=== PATIENT | female | born 1990 | race Caucasian/White ===

== ENCOUNTER 2016-12-10 22:32 | Emergency (ER) | payer BC, MEDICAID ==
--- NOTE | 2016-12-11 04:06 | ER Physician Documentation ---
DATE OF SERVICE: 12/10/2016 EMERGENCY ROOM EVALUATION AND TREATMENT HISTORY AND PHYSICAL PATIENT'S IDENTIFICATION: A 25-year-old female patient came to the Emergency Room on 12/10/2016 at 11:10 when I saw her. The patient was seen on 12/10/2016. She was seen along with Kelsi, the triage nurse. She was there with me when I was examining and she witnessed that. No known allergies reported by the patient. BMI of the patient is 22.5 kg. Body surface area is 1.67 sq. m. The patient is full code. The patient's weight is 61.235 kg. This is a 25-year-old female patient who had her both breast implants done with silicone in [place] on 11/04/2016 after which she was given 2 weeks of Cipro antibiotic and the patient took those, finished those, and for past 3 days, the patient has been having pain and swelling and discomfort in the left breast more than the right breast. She did not know that her right breast is also infected. More will be dictated as I go along but actually both the breasts were found to be infected and there were pus sites and redness and erythema and cellulitis and severe infection of both breast sites is noted. Hence, the patient was seen in the ER. HISTORY OF PRESENT ILLNESS: The surgery was done for the first time for the patient for breast augmentation with silicone and her other family members were over there, so she went over there, spent some money to get this thing done. She talked to her doctor about 2 days ago but the doctor is in [place], so she came over here. I saw her, asked questions. She does not have any major fever. She does not take any medication. The medication list, I will be getting it pretty soon. If there is anything new that is added, I will let you know. She denies any other medical condition. Her friend noted that some discharge and redness and erythema are there. REVIEW OF SYSTEMS: EYES: No history of double vision, blurring, blindness. CENTRAL NERVOUS SYSTEM: No history of TIA, stroke, encephalitis, brain tumor, epilepsy, seizure disorder. ENDOCRINE: No diabetes mellitus. No hypo- or hyperthyroidism. BONES AND JOINTS: No apparent complaints. BREASTS: Mostly complaints are in the left breast more than the right breast. Right breast has maybe slight pain. Left breast has more pain and erythema, redness, discharge and 3 sites from where I believe pus has come out and pus pocket site is seen. The right breast also similarly has same erythema but slightly less, but 3 pus sites from where the skin has torn open and it is definitely severe cellulitis infection and infected both breast implant that I can see and needs intensive admission and workup with a surgeon. The patient then decided when she was left alone that she should go to another hospital where she can get a second opinion and other things, so she signed against medical advice. I was not there. I was at my desk when she was talking to the nurse, Kelsi, and the patient decided at that time that she should go and get another opinion and so she left. I informed of all the risks, complications, alternatives about the treatment part and she said she would be immediately going to another hospital and another doctor. Wherever she thinks she wants to go, she will be going right now. CARDIAC: The patient has no chest pain, no myocardial infarction. No rheumatic fever, valvular heart disease, pericardial disease. GENITOURINARY: No burning, frequency, dysuria. Liver disorder is none. She is drinking. She denies any smoking. She denies any drugs that she is taking. Tetanus toxoid, she took it. MEDICAL HISTORY: Otherwise is negative. She had 1 year ago miscarriage and she lost some blood at that time. MEDICATIONS: She is not taking any medications at the present moment. PHYSICAL EXAMINATION: VITAL SIGNS: The triage nurse took the vital signs which were 97.6, pulse of 92, respiration of 18, blood pressure 105/89, oxygen saturation of 98%. Height of 5 feet 5 inches, weight of 135 pounds. Last menstrual period was 11/20/2016. BREASTS: The patient's both breasts are augmented, clearly seen. Both breasts are infected, cellulitis, sepsis and pus sites are seen but no drainage is seen at the present moment. Red, warm, tender to touch and on the right side at the bottom of the breast, one can see that the red cellulitis patches are running all along the base of the right breast but on the left breast that thing is not seen but the entire half left breast some about the nipple and most of it below the nipple are infected and painful and clearly there is evidence of definite massive infection seen. GENERAL: The patient does not have any meningeal signs. No edema, no cyanosis, no petechia, no ecchymosis, no DVT. Pulses are well felt. She has an implant in the left upper arm for prevention of . She is a full code patient. CHEST: Clear without any rales, rhonchi, or bronchial breathing. ABDOMEN: Soft, benign and negative. CENTRAL NERVOUS SYSTEM: Within normal limits. HEART: Sounds appear to be normal. Fourth heart sound is absent. First and second heart sounds are present. Did not try to feel the PMI because the breast is big and coming in the way. CLINICAL IMPRESSION: The patient has left and right, both breast implantation done with silicone. This was done in [place] on 11/04/2016 followed by 2 weeks of Cipro 500 mg twice a day. She took it and for the past 3-4 days, according to her 3 or 4 days but from looking at the breasts it looks like it may be more time than that that she is having this infection that is growing up and has been a difficult situation at the present moment in the form of infection and treatment. I advised the patient to be admitted and we will admit under general surgeon. We will start the patient on antibiotic as soon as possible and then the surgeon will decide what further to be done and it is possible that the patient may need breasts to be removed of the silicone implant or the patient may get better and may not need any of the implantation removal but this will all depend upon the plastic surgeon and the breast surgeon, general surgeon ____ will be available here and when we can get here but when I came and sat down at my table she decided that she should go and take another opinion with another doctor. She told that to Kelsi and Kelsi got her signature for that the patient was leaving the hospital against medical advice and she took her signature on 12/10/2016 at 2310. I also explained to the patient all the risks, benefits, alternatives and advised her to please take the help and see the doctor immediately. FINAL DIAGNOSIS: Both breasts infection with cellulitis, deep infection in the breasts, most likely the silicone area and the bases of both breasts are deeply infected, in each breast 3 sites of at least 1 cm, some 0.5 cm, 0.75 cm are draining, but at this minute I do not see anything drain coming out. The patient was told to get on an antibiotic but she does not want anything to be done and she ran away and said she was going to another hospital to see another doctor. Kelsi was the nurse and drying supervisor cooking casing who was present when I was there. She triaged the patient on 12/10/2016 at 2235 and on 12/10/2016 at 2310 the patient left the hospital. By her notes, I see that the departure time was 2310 and her signature was 2315. We wish the patient well and pray for her urgent and fast recovery and complete recovery. I have entered some lab results but the patient did not want anything to be done and so according to Kelsi, the triage nurse, I should just leave it like that and dictate my notes and things. JOB# [id number]
== END 2016-12-10 23:10 | disposition left against medical advice (07) ==
LOC: ER 22:32
DX: N61.0 Mastitis without abscess (principal)
CPT/HCPCS: Z7502